=== PATIENT | female | born 1995 | race Caucasian/White ===

== ENCOUNTER 2017-06-13 16:06 | Emergency (ER) | payer SELFPAY ==
[2017-06-13 16:21] VITALS: BP 106/69
[2017-06-13 17:54] LABS: HCG Qualitative,Urine Negative (Negative)
[2017-06-13 17:57] LABS: Bilirubin,Urine NEG (Negative); Blood,Urine NEG (Negative); Calcium Oxalate Crystals,Urine 1+; Color,Urine Yellow (Yellow); Mucus,Urine 3+ /HPF; Urobilinogen,Urine < 2.0 mg/dL (<2.0)
== END 2017-06-13 21:38 | disposition left against medical advice (07) ==
LOC: ED 16:06
DX: R30.0 Dysuria (principal); Z53.21 Procedure and treatment not carried out due to patient leaving prior to being seen by health care provider
CPT/HCPCS: 81001; 81025; 87086